=== PATIENT | male | born 1965 | race Hispanic/Latino ===

== ENCOUNTER 2018-03-31 06:26 | Emergency (ER) | payer MEDICAID ==
[2018-03-31 06:27] VITALS: BMI 41.1
--- NOTE | 2018-03-31 07:28 | ED PDOC ---
Arrival/HPI - General Chief Complaint: Upper Extremity Problem/Injury Time Seen by Provider: 03/31/18 07:05 Historian: Patient - History of Present Illness Narrative History of Present Illness (Text): 03/31/18 07:21 53 year old male, whose past medical history includes diabetes and arthritis, presents to the emergency department with intermittent left shoulder pain for 3 days. Patient denies any known trauma to the shoulder. Patient states pain is worse with movement. Patient denies any fevers, chills, headache, dizziness, chest pain, shortness of breath, cough, abdominal pain, nausea, vomiting, diarrhea, back pain, neck pain, or any other complaint. Time/Duration: < week (3 days) Symptom Course: Unchanged Quality: Aching Past Medical History - Provider Review Nursing Documentation Reviewed: Yes - Infectious Disease Hx of Infectious Diseases: None - Cardiac Hx Hypertension: Yes - Pulmonary Hx Respiratory Disorders: No Other/Comment: rapid heart beat - Neurological Hx Neurological Disorder: No - Endocrine/Metabolic Hx Diabetes Mellitus Type 2: Yes - Hematological/Oncological Hx Blood Disorders: No - Integumentary Other/Comment: FUNGAL INFECTION TO PENIS - Musculoskeletal/Rheumatological Other/Comment: JOINT PAIN, KNEE PAIN - Gastrointestinal Hx Gastrointestinal Disorders: No - Genitourinary/Gynecological Other/Comment: POLYURIA - Psychiatric Hx Psychophysiologic Disorder: No Hx Substance Use: No - Past Surgical History Past Surgical History: No Previous - Anesthesia Hx Anesthesia: No Hx Anesthesia Reactions: No Hx Malignant Hyperthermia: No - Suicidal Assessment Feels Threatened In Home Enviroment: No Family/Social History - Physician Review Nursing Documentation Reviewed: Yes Family/Social History: No Known Family HX Smoking Status: Former Smoker Hx Alcohol Use: No Hx Substance Use: No Allergies/Home Meds Allergies/Adverse Reactions: Allergies No Known Allergies Allergy (Verified 12/01/15 16:56) Home Medications: Home Meds Medication Instructions Recorded Confirmed RX: Lisinopril [Zestril] 20 mg PO DAILY 07/02/14 12/01/15 Atorvastatin [Lipitor] 80 mg PO DAILY 12/01/15 12/01/15 Insulin Detemir [Levemir] 30 unit SC DAILY 12/01/15 12/01/15 Sitagliptin Phos/Metformin HCl 1 each PO BID 12/01/15 12/01/15 [Janumet 50-1,000 mg Tablet] Review of Systems - Physician Review All systems were reviewed & negative as marked: Yes - Review of Systems Constitutional: absent: Fevers, Night Sweats Respiratory: absent: SOB, Cough Cardiovascular: absent: Chest Pain Gastrointestinal: absent: Abdominal Pain, Diarrhea, Nausea, Vomiting Musculoskeletal: absent: Back Pain, Neck Pain Neurological: absent: Headache, Dizziness Physical Exam - Systems Exam Head: Present: Atraumatic, Normocephalic Pupils: Present: PERRL Extroacular Muscles: Present: EOMI Conjunctiva: Present: Normal Mouth: Present: Moist Mucous Membranes Neck: Present: Normal Range of Motion Respiratory/Chest: Present: Clear to Auscultation, Good Air Exchange. No: Respiratory Distress, Accessory Muscle Use Cardiovascular: Present: Regular Rate and Rhythm, Normal S1, S2. No: Murmurs Abdomen: No: Tenderness, Distention, Peritoneal Signs Back: Present: Normal Inspection Upper Extremity: Present: Tenderness (Mild left shoulder tenderness). No: Cyanosis, Edema Lower Extremity: Present: Normal Inspection. No: Edema Neurological: Present: GCS=15, CN II-XII Intact, Speech Normal Skin: Present: Warm, Dry, Normal Color. No: Rashes Psychiatric: Present: Alert, Oriented x 3, Normal Insight, Normal Concentration Medical Decision Making ED Course and Treatment: 03/31/18 07:29 Impression: 53 year old male presents with left shoulder pain Plan: -- Toradol -- Left Shoulder X-ray -- Reassess and disposition Prior Visits: Notes and results from previous visits were reviewed. Progress Notes: 03/31/18 07:30 EKG reviewed by me, shows: Sinus Tachycardia @ 107bpm No ST or T wave changes 03/31/18 11:36 pt with left shoulder pain/tenderness on exam. exam consistent with msk pain. no cp, ekg no changes. xr neg. h/o of arthirits. advise will need outpt fu with pmd ortho and rhem. pt states he understands and will retun with worsening. - RAD Interpretation Radiology Orders: 03/31/18 07:19 SHOULDER LEFT [RAD] Stat - Medication Orders Current Medication Orders: Ketorolac Tromethamine (Toradol) 30 mg IM STAT STA Stop: 03/31/18 07:21 - Scribe Statement The provider has reviewed the documentation as recorded by the Macario Wolfe Provider Scribe Attestation: All medical record entries made by the Groveribira were at my direction and personally dictated by me. I have reviewed the chart and agree that the record accurately reflects my personal performance of the history, physical exam, medical decision making, and the department course for this patient. I have also personally directed, reviewed, and agree with the discharge instructions and disposition. Disposition/Present on Arrival - Present on Arrival Any Indicators Present on Arrival: No History of DVT/PE: No History of Uncontrolled Diabetes: Yes Urinary Catheter: No History of Decub. Ulcer: No History Surgical Site Infection Following: None - Disposition Have Diagnosis and Disposition been Completed?: Yes Diagnosis: Shoulder pain Disposition: HOME/ ROUTINE Disposition Time: 08:00 Condition: STABLE Discharge Instructions (ExitCare): Shoulder Pain (DC) Additional Instructions: return to er with worsening symptoms or concerns. you will need further testing and workup as an outpatient, including eval for orthopedics, your doctor, and other specialist.s Prescriptions: RX: Naproxen 500 mg PO BID PRN #14 tab PRN Reason: Pain, Mild (1-3) Referrals: Mack Rodrigues DO [Staff Provider] - Follow up with primary Forms: [employer] ([employer])
[2018-03-31 08:46] VITALS: BP 128/84; PULSE 80; RESP 20; TEMP 98.8; O2SAT 99
--- NOTE | 2018-03-31 09:46 | RAD ---
Date of service: 03/31/2018 PROCEDURE: Radiographs of the Left Shoulder HISTORY: pain COMPARISON: No prior. FINDINGS: BONES: Normal. No fracture. JOINTS: Normal. Glenohumeral and acromioclavicular joints preserved. No osteoarthritis. SOFT TISSUES: Normal. OTHER FINDINGS: None. IMPRESSION: Normal radiographs of the left shoulder.
--- NOTE | 2018-03-31 20:59 | CARD ---
APPROVED REPORT Date of service: 03/31/2018 EKG Measurement Heart [id number] <Conclusion> Sinus tachycardia Otherwise normal ECG
== END 2018-03-31 08:43 | disposition home or self-care (01) ==
LOC: ED 06:26
DX: M25.512 Pain in left shoulder (principal)
CPT/HCPCS: 73030; 93005; 96372; 99284; J1885